=== PATIENT | male | born 2000 | race African-American/Black ===

== ENCOUNTER 2022-04-19 18:35 | Emergency (ER) | payer MEDICAID, OTHER ==
[~2022-04-19] VITALS: Ht 185.4 cm; Wt 64.0 kg
[2022-04-19] MEDS ORDERED: IBUPROFEN 600MG TABLET PO ONE (19:15)
[2022-04-19 21:09] VITALS: BP 112/78
== END 2022-04-19 21:09 | disposition home or self-care (01) ==
LOC: ER 18:35
DX: M25.532 Pain in left wrist (principal); I10 Essential (primary) hypertension; G62.9 Polyneuropathy, unspecified; F12.10 Cannabis abuse, uncomplicated
CPT/HCPCS: 29125; 73110; 73130; 99284

== ENCOUNTER 2022-12-04 04:15 | Emergency (ER) | payer OTHER ==
[~2022-12-04] VITALS: Ht 182.9 cm; Wt 61.0 kg
[2022-12-04 04:44] VITALS: BP 139/94
== END 2022-12-04 08:47 | disposition left against medical advice (07) ==
LOC: ER 04:15
DX: R50.9 Fever, unspecified (principal); Z53.21 Procedure and treatment not carried out due to patient leaving prior to being seen by health care provider
CPT/HCPCS: 99281

== ENCOUNTER 2025-01-20 16:29 | Emergency (ER) | payer MEDICAID, OTHER ==
[~2025-01-20] VITALS: Ht 185.4 cm; Wt 70.0 kg
[2025-01-20 16:37] VITALS: O2SAT 98
[2025-01-20 17:10] VITALS: TEMP 36.8
[2025-01-20 18:09] LABS: BASOPHILS % 0.3 % (0.0-2.0); EOSINOPHILS % 0.2 % (0.0-5.0); HEMATOCRIT. 40.1 % (42.0-52.0); HEMOGLOBIN. 13.4 g/dL (14.0-18.0); LYMPHOCYTES % 16.9 % (20.0-50.0); MEAN CORPUSCULAR HGB CONC 33.3 g/dL (31.0-37.0); MEAN PLATELET VOLUME 7.6 fl (7.4-10.4); MONOCYTES % 9.5 % (2.0-8.0); NEUTROPHILS % 73.1 % (40.0-76.0); PLATELET 448 x1000/uL (130-400); RED BLOOD CELL COUNT 4.31 mill/uL (4.7-6.1); RED CELL DISTRIBUTION WIDTH 14.9 % (11.6-14.6)
[2025-01-20 18:20] LABS: CARBON DIOXIDE 27 mEq/L (21-32); CHLORIDE 105 mEq/L (98-107); SODIUM 138 mEq/L (136-145)
[2025-01-20 18:26] LABS: CREATININE 0.8 mg/dL (0.6-1.3); ETHANOL BLOOD < 10 mg/dL (<10); GLUCOSE 105 mg/dL (70-105); UREA NITROGEN BLOOD 9 mg/dL (9-23)
[2025-01-20 18:44] LABS: PROTHROMBIN TIME 10.9 sec (9.6-11.0)
[2025-01-20] MEDS ORDERED: NALO4SPR BOTHNSTRLS (21:35)
[2025-01-20 22:00] VITALS: BP 118/69; PULSE 100; RESP 11; O2SAT 100
== END 2025-01-20 22:07 | disposition home or self-care (01) ==
LOC: ER 16:29
DX: T65.91XA Toxic effect of unspecified substance, accidental (unintentional), initial encounter (principal); F15.10 Other stimulant abuse, uncomplicated; F12.90 Cannabis use, unspecified, uncomplicated; Y92.89 Other specified places as the place of occurrence of the external cause
CPT/HCPCS: 36415; 71045; 80048; 80320; 85025; 93005; 99285; G0480

== ENCOUNTER 2025-04-16 23:22 | Emergency (ER) | payer MEDICAID, OTHER ==
[~2025-04-16 23:22] MED LIST: NALO4SPR BOTHNSTRLS
[2025-04-16 23:27] VITALS: PULSE 114; RESP 20; O2SAT 99
== END 2025-04-17 01:19 | disposition left against medical advice (07) ==
LOC: ER 23:22
DX: S01.511A Laceration without foreign body of lip, initial encounter (principal); Z53.21 Procedure and treatment not carried out due to patient leaving prior to being seen by health care provider; X58.XXXA Exposure to other specified factors, initial encounter; Y93.89 Activity, other specified; Y92.89 Other specified places as the place of occurrence of the external cause; Y99.8 Other external cause status

== ENCOUNTER 2025-04-26 21:57 | Emergency (ER) | payer OTHER ==
[~2025-04-26] VITALS: Ht 182.9 cm; Wt 75.0 kg
[2025-04-26 22:03] VITALS: O2SAT 97
[2025-04-26 23:19] LABS: BASOPHILS % 0.3 % (0.0-2.0); EOSINOPHILS % 0.7 % (0.0-5.0); HEMATOCRIT. 36.6 % (42.0-52.0); HEMOGLOBIN. 12.2 g/dL (14.0-18.0); LYMPHOCYTES % 25.8 % (20.0-50.0); MEAN PLATELET VOLUME 8.9 fl (7.4-10.4); MONOCYTES % 7.2 % (2.0-8.0); NEUTROPHILS % 66.0 % (40.0-76.0); PLATELET 349 x1000/uL (130-400); RED BLOOD CELL COUNT 3.93 mill/uL (4.7-6.1); RED CELL DISTRIBUTION WIDTH 13.3 % (11.6-14.6)
[2025-04-26 23:24] LABS: CREATININE 1.1 mg/dL (0.6-1.3); INR 1.0; UREA NITROGEN BLOOD 7 mg/dL (9-23)
[2025-04-26 23:25] LABS: ETHANOL BLOOD < 10 mg/dL (<10); TROPONIN I HIGH SENSITIVITY < 4 ng/L (3.0-53)
[2025-04-26 23:26] LABS: ASPARTATE AMINOTRANSFERASE 25 IU/L (<34)
[2025-04-26 23:27] LABS: BILIRUBIN DIRECT < 0.1 mg/dL (<=3.0); BILIRUBIN TOTAL 0.2 mg/dL (0.1-1.0); PROTEIN TOTAL 7.2 g/dL (6.0-8.3)
[2025-04-27] MEDS: SODIUM CHLORIDE 0.9% 1,000 ML IV ONE (00:18)
[2025-04-27] MEDS: LEVETIRACETAM 1000MG PREMIX 100 ML IV ONE (00:18)
[2025-04-27] MEDS ORDERED: IPRATROPIUM/ALBUTEROL 0.5-3(2.5)MG/3ML NEB HHN PRN (00:45)
[2025-04-27] MEDS: SODIUM CHLORIDE 0.9% 1,000 ML IV SCH (00:45)
[2025-04-27] MEDS ORDERED: ONDANSETRON HCL 4MG/2ML INJ IV PRN (00:45)
[2025-04-27] MEDS ORDERED: ACETAMINOPHEN 325MG TABLET PO PRN ×2 (00:45)
[2025-04-27 02:02] VITALS: BP 119/68; PULSE 98; RESP 16; TEMP 36.9; O2SAT 97
[2025-04-27] MEDS ORDERED: LEVETIRACETAM 500MG PREMIX 100 ML IV SCH (09:00)
== END 2025-04-27 02:09 | disposition left against medical advice (07) ==
LOC: ER 21:57 → EDBEDREQTM 04-27 00:39 → EDBEDREQ 04-27 00:39 → EDBEDREQDT 04-27 00:39 → ER 04-27 02:09
DX: R56.9 Unspecified convulsions (principal); F12.10 Cannabis abuse, uncomplicated; Z86.73 Personal history of transient ischemic attack (TIA), and cerebral infarction without residual deficits
CPT/HCPCS: 80076; 80048; 80320; 83690; 85025; 85610; 84484; 36415 ×2; 71045; 70450; 99291; 82550; 83735; 96374; J7030; J1953; G0480